=== PATIENT | female | born 1995 | race Caucasian/White ===

== ENCOUNTER → 2022-03-23 08:42 | Outpatient (CLI) | payer OTHER, SELFPAY ==
--- NOTE | ~2022-03-23 | US_ITS ---
EXAMINATION: US renal BI DATE: 03/23/2022 09:03 INDICATION: Family history of polycystic kidney disease TECHNIQUE: Multiple grayscale and Doppler ultrasound images of the kidneys were obtained. COMPARISON: None available FINDINGS: The right kidney measures 10.6 x 5.1 x 5.3 cm. The left kidney measures 11.1 x 5.3 x 4.9 cm. The kidn eys demonstrate normal parenchymal echogenicity.No sonographic evidence of nephrolithiasis. No mass. Mild bilateral hydronephrosis. The bladder is well-distended. Normal bilateral ureteral jets. No blad milagro wall thickening. IMPRESSION: 1. Mild bilateral hydronephrosis. Reviewed, dictated and finalized at location K.
== END ==
PROVIDERS: PCP Internal Medicine; Visit Provider Internal Medicine
DX: N13.30 Unspecified hydronephrosis (principal); Z82.71 Family history of polycystic kidney
CPT/HCPCS: 76775

== ENCOUNTER 2022-07-22 10:30 | Outpatient (CLI) | payer OTHER, SELFPAY ==
[2022-07-22 11:11] LABS: Basophils Absolute Auto 0.1 K/mm3 (0.0-0.1); Basophils Percent Auto 0.7 % (0.2-1.2); Eosinophils Absolute Auto 0.4 K/mm3 (0-0.3); Eosinophils Percent Auto 4.1 % (0-4.4); Hematocrit 42.2 % (37.0-47.0); Hemoglobin 14.5 g/dL (12.0-15.0); Immature Granulocyte Absolute 0.03 K/mm3 (0.00-0.031); Immature Granulocyte Percent A 0.3 % (0-0.5); Lymphocytes Absolute Auto 2.59 K/mm3 (0.9-3.2); Lymphocytes Percent Auto 28.6 % (18.3-44.2); Mean Corpuscular HGB Conc 34.4 g/dl (32-36); Mean Corpuscular Hemoglobin 30.7 pg (26-34); Mean Corpuscular Volume 89.2 fl (80-100); Mean Platelet Volume 9.6 fl (7.4-10.4); Monocytes Absolute Auto 0.5 K/mm3 (0.1-0.6); Monocytes Percent Auto 5.7 % (2.6-8.5); Neutrophils Absolute Auto 5.5 K/mm3 (1.3-6.7); Neutrophils Percent Auto 60.6 % (45.5-73.1); Platelet Count Result 279 k/mm3 (150-375); Red Blood Count 4.73 M/mm3 (4.2-5.4); Red Cell Distribution Width 12.5 % (11.5-14.5); White Blood Count 9.1 K/mm3 (4.5-10.0)
[2022-07-22 11:22] LABS: Alanine Aminotransferase 41 U/L (6-35); Albumin Level 4.5 g/dL (3.5-5.1); Alkaline Phosphatase 67 U/L (38-126); Amylase 70 U/L (30-110); Anion Gap 11 mmol/L (8-16); Aspartate Amino Transferase 37 U/L (14-36); Bilirubin,Total 0.5 mg/dL (0.2-1.3); Blood Urea Nitrogen 10 mg/dL (7-17); Calcium 9.2 mg/dL (8.4-10.2); Carbon Dioxide 24 mmol/L (22-30); Chloride 102 mmol/L (98-107); Estimated Glomerular Filt Rate > 60; Glucose 86 mg/dL (65-110); Lipase 58 U/L (23-300); Potassium 3.8 mmol/L (3.4-5.0); Sodium 137 mmol/L (137-145)
[2022-07-22 13:02] LABS: Beta HCG Quantitative < 2.39 mIU/ML
[2022-07-22 13:11] LABS: Add Urine Microscopic? YES; Appearance Urine Cloudy (Clear); Bacteria Urine Trace /hpf; Bilirubin Urine Negative (Negative); Blood Urine 1+ (Negative); Color Urine Yellow (Yellow); Glucose Urine UA Negative (Negative); Ketones Urine Negative (Negative); Leukocyte Esterase Ur Trace LEU/UL (NEGATIVE); Mucus Urine Rare /lpf; Nitrate Urine Negative (Negative); Protein Urine Negative (Negative); RBC Urine 0-2 /hpf (0-2); Specific Grav Ur 1.008 (1.001-1.035); Squamous Epithelial Cell Urine Occasional /hpf (Few); Urobilinogen Urine Negative mg/dL (<2.0); WBC Urine 0-3 /hpf (0-3)
== END 2022-07-22 10:31 | disposition home or self-care (01) ==
PROVIDERS: PCP Internal Medicine; Visit Provider Internal Medicine
DX: R10.9 Unspecified abdominal pain (principal)
CPT/HCPCS: 36415; 80053; 81001; 82150; 83690; 84702; 85025; 87045; 87177; 87209; 87427

== ENCOUNTER 2022-07-22 15:53 | Outpatient (CLI) | payer OTHER, SELFPAY ==
--- NOTE | ~2022-07-22 | CT_ITS ---
EXAMINATION: CT abdomen pelvis w con DATE: 07/22/2022 16:18 INDICATION: LT SIDE ABD PAIN TECHNIQUE: Computed tomography (CT) of the abdomen and pelvis was performed with 100 mL Omnipaque-350 intravenous contrast. Automated exposure control and iterative reconstruction technique were employe d. The dose-length product was 1141.51 mGy-cm. COMPARISON: None. FINDINGS: Lower thorax: Unremarkable Liver: Normal. Biliary/Gallbladder: Gallbladder is collapsed. No bile duct dilation. Pancreas: No mass or duct dilation. Spleen: Normal. Adrenals:No mass. Kidneys: Punctate nonobstructive calcifications in the right kidney. No suspicious mass. No hydroneph rosis. GI tract: No small or large bowel dilation. Normal appendix. Inflammatory changes of a fat lobule adj acent to the sigmoid colon in the left lower quadrant. No diverticulosis. Mesentery/Peritoneum: No ascites, mass, or free air. Retroperitoneum: No mass. Pelvis: Pelvic organs are within normal limits. Soft Tissues: Soft tissues and body wall unremarkable. Bones: No acute osseous finding. IMPRESSION: Epiploic appendagitis in the left lower quadrant Reviewed, dictated and finalized at location K.
== END 2022-07-22 15:54 | disposition home or self-care (01) ==
LOC: ANHIMG 15:54
PROVIDERS: PCP Internal Medicine; Visit Provider Internal Medicine
DX: R10.9 Unspecified abdominal pain (principal); K63.89 Other specified diseases of intestine
CPT/HCPCS: 36415; 74177; 80053; 81001; 82150; 83690; 84702; 85025; 87045; 87177; 87209; 87427; Q9967

== ENCOUNTER → 2023-04-01 10:29 | Outpatient (CLI) | payer OTHER, SELFPAY ==
--- NOTE | ~2023-04-01 | XR_ITS ---
Left foot Technique: AP, oblique, and lateral views were obtained. Clinical History: Bone hyperplasia Findings: No acute fracture or dislocation is seen. Osseous alignment is anatomic. Joint spaces are p reserved without erosive or degenerative change. Soft tissues are unremarkable. Impression: Unremarkable left foot radiographs. Reviewed, dictated and finalized at location . Impression: Unremarkable left foot radiographs.
--- NOTE | ~2023-04-01 | US_ITS ---
EXAMINATION: US thyroid DATE: 04/01/2023 11:02 INDICATION: Goiter TECHNIQUE: Multiple ultrasound images of the thyroid were obtained. COMPARISON: 11/02/2017 FINDINGS: The right thyroid lobe measures 6.3 x 2.2 x 2.4 cm. The left thyroid lobe measures 6.8 x 2.1 x 2.7 c m. There is heterogeneous decreased echogenicity with coarsened echotexture throughout the thyroid. There are 3 wider than tall solid hypoechoic nodule with ill-defined margins and without echogenic fo ci (TI-RADS 4, moderately suspicious , FNA if >=1.5 cm, annual followup is >=1 cm), the larger measur ing 2.2 cm the deep mid to inferior left thyroid lobe, 1.4 cm at the superficial superior right thyro id lobe and 1.3 cm the thyroid isthmus. There is an additional 4 mm solid isoechoic TI RADS 3 nodule in the inferior right thyroid lobe. IMPRESSION: 1. Multinodular goiter. Recommend ultrasound-guided biopsy of the largest 2.2 cm TI RADS 4 left thyro id nodule. Reviewed, dictated and finalized at location A. IMPRESSION: 1. Multinodular goiter. Recommend ultrasound-guided biopsy of the largest 2.2 c m TI RADS 4 left thyroid nodule.
== END ==
PROVIDERS: PCP Internal Medicine; Visit Provider Internal Medicine
DX: M89.30 Hypertrophy of bone, unspecified site (principal); E04.2 Nontoxic multinodular goiter
CPT/HCPCS: 73630; 76536

== ENCOUNTER 2023-05-23 12:20 | Outpatient (CLI) | payer OTHER, SELFPAY ==
--- NOTE | ~2023-05-23 | US_ITS ---
EXAMINATION: US FNA w image guidance DATE: 05/23/2023 13:32 INDICATION: Thyroid nodule TECHNIQUE: A time-out was performed to verify the patient's name, date of , and procedure to be performed . The procedure and its benefits and risks were discussed with the patient. Risks specifically discus sed included bleeding and infection. The patient understood the risks and agreed to proceed. The neck was prepped and draped in the usual sterile manner. 3 mL 1% lidocaine was used for local anesthesia . 6 passes were made with a 25G needle into the lesion. Appropriate needle location was documented with continuous sonographic guidance. A sterile bandage was applied. There were no immediate compli cations. FINDINGS: Grayscale ultrasound images demonstrate biopsy needles advanced into a 2.2 cm solid hypoechoic nodule with ill-defined margins at the deep left thyroid lobe. IMPRESSION: 1. Successful ultrasound-guided fine needle aspiration of a 2.2 cm TI RADS 4 left thyroid nodule of concern. Reviewed, dictated and finalized at location A. IMPRESSION: 1. Successful ultrasound-guided fine needle aspiration of a 2.2 cm TI RADS 4 l eft thyroid nodule of concern.
== END 2023-05-23 12:21 | disposition home or self-care (01) ==
LOC: ANHIMG 12:22
PROVIDERS: PCP Internal Medicine; Visit Provider Internal Medicine
DX: E04.1 Nontoxic single thyroid nodule (principal)
CPT/HCPCS: 10005; 88173; 88305; 88342

== ENCOUNTER 2024-06-29 08:36 | Outpatient (CLI) | payer OTHER, SELFPAY ==
--- NOTE | ~2024-06-29 | US_ITS ---
EXAMINATION: US OB <=14 wk fetus w TV DATE: 06/29/2024 09:59 INDICATION: Amenorrhea, unspecified. TECHNIQUE: Real-time transabdominal and transvaginal pelvic ultrasound was performed. COMPARISON: None. FINDINGS: TRANSABDOMINAL ULTRASOUND: The uterus measures 13.8 x 5.2 x 8.6 cm. TRANSVAGINAL ULTRASOUND: There is an intrauterine gestational sac. A yolk sac is identified. The fet al crown rump length measures 3.2 cm, which correlates with an estimated gestational age of 10 weeks and 0 day(s) (+/-) 5 day(s). heart motion is identified measuring 178 beats per minute (bpm) by M-mode Doppler. The right ovary measures 3.3 x 1.2 x 3.6 cm. The left ovary measures 2.2 x 2.0 x 2.7 cm. There is no free fluid in the pelvis. IMPRESSION: 1. Single living intrauterine gestation with estimated date of delivery of 01/25/2025. Reviewed, dictated and finalized at location A. IMPRESSION: 1. Single living intrauterine gestation with estimated date of delivery of 01/05.
== END 2024-06-29 08:37 | disposition home or self-care (01) ==
PROVIDERS: PCP Internal Medicine; Visit Provider Nurse Practitioner Obstetrics & Gynecology
DX: N91.2 Amenorrhea, unspecified (principal)
CPT/HCPCS: 76801; 76817

== ENCOUNTER 2024-08-31 07:30 | Outpatient (CLI) | payer OTHER, SELFPAY ==
--- NOTE | ~2024-08-31 | US_ITS ---
EXAMINATION: US OB /maternal detail DATE: 08/31/2024 09:58 INDICATION: anatomic survey. TECHNIQUE: Real-time ultrasound of the pelvis was performed. COMPARISON: Ultrasound 06/29/2024 FINDINGS: There is a single living fetus in variable presentation. The placenta is anterior, 2.6 cm from the c ervix. The cervical length is 3.1 cm, which is normal. heart rate is 138 beats per minute (bpm) . The amniotic fluid index is 6.8 cm, which is low (5th percentile is 9.2 cm). The following biometric data were obtained: Biparietal diameter (BPD): 4.3 cm; head circumference (HC): 15.9 cm; abdominal circumference (AC): 13 .7 cm; femur length (FL): 2.9 cm. These measurements are concordant. Estimated weight is 270 g +/- 41 g, which correlates with the 47th percentile when 01/25/25 is u sed as estimated date of delivery. As single measurements, these parameters are each equal to the following estimated gestational ages: BPD: 18 weeks 6 days. HC: 18 weeks 5 days. AC: 19 weeks 1 days. FL: 19 weeks 0 days. estimated gestational age based solely on measurements from this exam is 19 weeks 0 days +/- 1 weeks 2 days. The cerebral ventricles, cerebellum, cisterna magna, nuchal fold, and spine are normal. The hea rt is not well visualized. The diaphragm, stomach, kidneys, and bladder are normal. There are two umb ilical arteries to yield a 3-vessel cord. The cord insertion is normal. IMPRESSION: 1. Single living fetus in variable presentation. 2. Estimated weight is 270 g +/- 41 g, which correlates with the 47th percentile when 01/25/25 is used as estimated date of delivery. This date was set by ultrasound on 06/29/2024. 3. Oligohydramnios. 4. heart not well visualized. Otherwise normal anatomic survey. Reviewed, dictated and finalized at location A. [employer] IMPRESSION: 1. Single living fetus in variable presentation. 2. Estimated weight is 270 g +/- 41 g, which correlates with the 47th rcentile when 01/25/25 is used as estimated date of delivery. This date was set by ultrasound on 06/29/2024. 3. Oligohydramnios. 4. heart not well visualized. Otherwise normal anatomic survey.
== END 2024-08-31 07:31 | disposition home or self-care (01) ==
LOC: ANHIMG 07:35
PROVIDERS: PCP Internal Medicine; Visit Provider Obstetrics & Gynecology
DX: Z36.89 Encounter for other specified antenatal screening (principal)
CPT/HCPCS: 76805